=== PATIENT | male | born 1950 | race Caucasian/White ===

== ENCOUNTER → 2024-07-28 09:53 | Outpatient (CLI) | payer MEDICARE, OTHER, SELFPAY ==
--- NOTE | 2024-07-28 12:42 | ST.SWALLOW ---
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 Pt denies difficulty with swallowing medications. He described swallowing difficulty with foods like shredded coconut, crackers and liquids. His accompanied him to the MBSS and noted that he is frequently clearing his throat during and after meals. MBSS ordered to determine current swallowing status and pt's risk for aspiration. 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 Pt's PMH includes surgical removal of bilateral vocal nodules and GERD with Fundolplication repair, both ~20 years ago. Subjective Observations Pt was seated in the fluoroscopy chair with directions and procedures described for him. He indicated he understood and agreed to proceed. Pt presented with a breathy vocal quality. OF NOTE: Due to technical difficulty, the complete MBSS was not captured on video. Liquid trials and solid trials were video captured for analysis. Patient Positioning Position View Lat-A/P Imaging Lateral View Textures Administered Trials Presented Thin Liquid via Spoon (IDDSI 0 ),Thin Liquid via Cup (IDDSI 0 ),Extremely Thick Liquid via Spoon (IDDSI 4),Regular (IDDSI 7) Barium Tablet Yes The IDDSI Framework Protocol: IDDSI.1 Oral Impairment Source: The Modified Barium Swallow Impairment Profile (MBSImP??) Lip Closure No labial escape Tongue Control During Bolus Hold Cohesive bolus between tongue to palatal seal Bolus Preparation/Mastication Timely & efficient chewing & mashing Bolus Transport/Lingual Motion Repetitive/disorganized tongue motion Oral Residue Complete oral clearance Initiation of Pharyngeal Swallow Bolus head at posterior laryngeal surface of epiglottis Additional Oral Impairment Observations *OME indicated structures to be normal. Natural dentition in good hygiene. ROM noted to be WNL. Strength and speed of movement as well as DKS were observed to be WFL. However, as the MBSS continued, the pt's speech was observed to become mildly dysarthric, but still 100% intelligible, indicating reduction in oral musculature speed and strength. *Dentition natural and in good hygiene *Mastication observed with rotary chew pattern. *Good bolus formation, control Delayed AP transition with disorganized and repetative tongue movement initiation observed. Pharyngeal Impairment Source: The Modified Barium Swallow Impairment Profile (MBSImP??) Soft Palate Elevation No bolus between soft palate & pharyngeal wall Laryngeal Elevation Comp.sup.move.thyroid cart.w/ comp.approx.arytenoids to epiglot petiole Anterior Hyoid Excursion Partial anterior movement Epiglottic Movement Complete inversion Laryngeal Vestibular Closure Incomplete; narrow column air/ contrast in laryngeal vestibule Pharyngeal Stripping Wave Present - diminished Pharyngoesophageal Segment Opening Partial distention/partial duration; partial obstruction of flow Tongue Base Retraction Narrow column of contrast/air betwn tongue base & post. pharyngeal wall Pharyngeal Residue Trace residue within/on pharyngeal structures Location Diffuse (>3 areas) Additional Pharyngeal Impairment *Delayed initiation of Observations swallow response *Reduced base of tongue retraction strength *Adequate laryngeal elevation with reduced hyoid movement; epiglottal inversion observed *Reduced seal of the laryngeal vestibule with penetration into the laryngeal vesitibule observed x7 (liquids) above the folds with visible laryngeal residue (along anterior wall of thyroid cartilage) - PAS 3 *No tracheal aspiration observed *Delayed throat clear noted following liquid trials *initial swallow of semi-solid and solid trials observed to be WFL. With repeated trials of cookie, pt's swallow response slowed. Pt described increased difficulty swallowing solids during meal progression A/P View Textures Administered Trials Presented Thin Liquid via Spoon (IDDSI 0 ) The IDDSI Framework Protocol: IDDSI.1 A/P View Observations Pharyngeal Contraction Complete Esophageal Clearance Upright Position Complete clearance; esophageal coating Esophageal Function WFL Additional A-P Observations *Trials of thin barium and a calibrated barium tablet cleared the esophagus in a timely manner *Esophageal phase of swallow WFL Clinical Impressions Dysphagia Type Oral,Pharyngeal Findings Pt presented with mild oropharyngeal dysphagia characterized by diminished lingual coordination for AP transition and delayed swallow response. Reduced base of tongue retraction strength negatively impacted hyoid movement and strength of epiglottal inversion and seal of laryngeal vestibule. Laryngeal penetration observed . No tracheal aspiration observed. As the MBSS proceeded, the pt reported increased difficulty with swallowing liquids ( consecutive swallows) as well as solid (cookie) trials. Smaller meals throughout the day are recommended to reduce muscle fatigue during (larger meals). Additionally, ST is recommended for speech, voice and swallow therapies. Rehabilitation Potential Excellent Patient Appropriate for Therapy Yes: Pt is currently seen at [facility] for ST services Recommendations Diet Comments No change in diet recommended at this time Aspiration Precautions Recommended Precautions Upright at 90 Degrees,Frequent Rest Periods,Small Bites/Sips Treatment Plan Therapy Recommendations Outpatient Speech Therapy,Oral Motor Exercises,Base of Tongue Exercises Additional Strategies Recommended Small meals throughout the day
== END ==
LOC: RAD 09:57
PROVIDERS: Referring Provider Psychiatry & Neurology Neurology; Visit Provider Psychiatry & Neurology Neurology
DX: G23.1 Progressive supranuclear ophthalmoplegia [Steele-Richardson-Olszewski] (principal); R13.10 Dysphagia, unspecified
CPT/HCPCS: 74220; 92611